=== PATIENT | female | born 1965 | race Caucasian/White ===

== ENCOUNTER 2016-09-21 10:38 | Observation (INO) | payer OTHER ==
[~2016-09-21] VITALS: Ht 162.6 cm; Wt 78.0 kg
[~2016-09-21 10:38] MED LIST: ASPIR-LOW81 MG PO; ATORVASTATIN CA40 MG PO; BRILINTA90 MG PO; CARVEDILOL3.125 MG PO; LANTUS 10100 UNITS/ SC; LASIX20 MG PO; METOLAZONE2.5 MG PO; MULTIPLE VITAM1 EACH PO; NOVOLOG 10100 UNITS/ SC; OCEAN NASAL 0.645 ML BOTH NARES; PLAVIX75 MG PO; PRINIVIL5 MG PO; SYSTANE BALANCE10 ML BOTH EYES; TOPROL XL25 MG PO; ZESTORETIC 20-1 EAC1 PO; ZESTRIL2.5 MG PO
[2016-09-21 11:36] LABS: HEMATOCRIT 38.1 % (36.0-46.0); MCH 28.2 PG (29.0-34.0); MCHC 32.3 G/DL (30.0-36.0); MCV 87.4 FL (83-99); MEAN PLAT.VOLUME 10.8 uM^3 (9.5-12.4); PLATELET COUNT 165 K/uL (156-360); RBC DIS.WIDTH-CV 15.1 % (11.8-14.6); RBC DIS.WIDTH-SD 48.4 % (39-53); RED BLOOD COUNT 4.36 M/uL (3.80-5.20); WHITE BLOOD COUNT 6.5 K/uL (4.1-10.2)
[2016-09-21 11:51] LABS: CHLORIDE 109 mEq/L (99-109); POTASSIUM 3.5 mEq/L (3.7-5.4); SODIUM 147 mEq/L (136-147)
[2016-09-21 11:53] LABS: GLUCOSE 84 mg/dL (70-99)
[2016-09-21 11:54] LABS: ANION GAP 11 MEQ/L (2-14)
[2016-09-21 11:56] LABS: GFR ESTIMATE (CALCULATED) > 59 mL/min/
[2016-09-21 11:57] LABS: TROP-I INTERPRETATION NEGATIVE; TROPONIN-I < 0.01 ng/mL (0.0-0.30); UREA NITROGEN (BUN) 13 mg/dL (9-23)
[2016-09-21 16:16] LABS: TROP-I INTERPRETATION NEGATIVE; TROPONIN-I < 0.01 ng/mL (0.0-0.30)
[2016-09-21 16:29] VITALS: BP 114/75
[2016-09-21 18:26] LABS: POINT-OF-CARE METER ID UU14162513
[2016-09-21 18:34] VITALS: BP 135/78
[2016-09-21] MEDS ORDERED: TRESIBA FL200 UNIT/1 SQ (18:44)
[2016-09-21] MEDS ORDERED: GLUCOPHAGE XR750 MG PO (18:45)
[2016-09-21 21:48] LABS: POINT-OF-CARE METER ID UU14162513
[2016-09-21] MEDS ORDERED: ENTRESTO 24 MG1 EACH PO (21:58)
[2016-09-21 22:41] VITALS: BP 124/75
[2016-09-21 23:24] LABS: TROP-I INTERPRETATION NEGATIVE; TROPONIN-I < 0.01 ng/mL (0.0-0.30)
[2016-09-22 03:12] VITALS: BP 96/51
[2016-09-22 05:13] LABS: HEMATOCRIT 33.6 % (36.0-46.0); MCH 28.7 PG (29.0-34.0); MCHC 32.7 G/DL (30.0-36.0); MCV 87.7 FL (83-99); PLATELET COUNT 130 K/uL (156-360); RBC DIS.WIDTH-CV 15.3 % (11.8-14.6); RBC DIS.WIDTH-SD 48.6 % (39-53); RED BLOOD COUNT 3.83 M/uL (3.80-5.20); WHITE BLOOD COUNT 5.1 K/uL (4.1-10.2)
[2016-09-22 05:39] LABS: ANION GAP 13 MEQ/L (2-14); CHLORIDE 109 MEQ/L (99-109); GFR ESTIMATE (CALCULATED) > 59 mL/min/; GLUCOSE 98 mg/dL (70-99); POTASSIUM 3.8 MEQ/L (3.7-5.4); SAMPLE HEMOLYSIS CHECK 0; SAMPLE ICTERIC CHECK 0; SAMPLE LIPEMIA CHECK 0; SODIUM 145 MEQ/L (136-147); UREA NITROGEN (BUN) 16 mg/dL (9-23)
[2016-09-22 07:08] VITALS: BP 101/68
[2016-09-22] MEDS ORDERED: REDNESS RELIEF15 M1 BOTH EYES (11:33)
[2016-09-22] MEDS ORDERED: SYSTANE BALANCE10 ML BOTH EYES (11:33)
[2016-09-22] MEDS ORDERED: VITAMIN B-12500 MC5 SL (11:34)
[2016-09-22] MEDS ORDERED: VITAMIN D31000 UNIT PO (11:34)
[2016-09-22] MEDS ORDERED: COQ-10100 MG PO (11:36)
[2016-09-22] MEDS ORDERED: SCALACORT29.6 ML TP (11:37)
[2016-09-22] MEDS ORDERED: KLOR-CON M2020 MEQ PO (11:40)
[2016-09-22 13:41] VITALS: BP 130/89
== END 2016-09-22 14:36 | disposition home or self-care (01) ==
LOC: EME 10:38 → ENRESERV 15:05 → 5WEST 15:05 → EDOF 15:05 → ENRESERV 15:17 → 5WEST 16:03 → ENPENDDIS 09-22 → 5WEST 09-22 14:36
PROVIDERS: Internal Medicine
DX: R07.9 Chest pain, unspecified (principal); I25.10 Atherosclerotic heart disease of native coronary artery without angina pectoris; Z95.1 Presence of aortocoronary bypass graft; I25.2 Old myocardial infarction; I10 Essential (primary) hypertension; E11.9 Type 2 diabetes mellitus without complications; Z79.4 Long term (current) use of insulin; Z79.84 Long term (current) use of oral hypoglycemic drugs; Z79.82 Long term (current) use of aspirin; M25.473 Effusion, unspecified ankle; Z95.4 Presence of other heart-valve replacement; Z88.1 Allergy status to other antibiotic agents; Z88.0 Allergy status to penicillin
CPT/HCPCS: 71020; 80048; 82948; 83880; 84484; 85027; 93005; 99281; 99284; G0378; J1815